=== PATIENT | male | born 1955 | race Caucasian/White ===

== ENCOUNTER → 2020-01-08 14:45 | Outpatient (BNVA) | payer OTHER, SELFPAY | PROVIDERS: Family Provider Family Medicine; PCP Family Medicine; Visit Provider Specialist | DX: G31.84 Mild cognitive impairment of uncertain or unknown etiology (principal); Z87.891 Personal history of nicotine dependence | CPT/HCPCS: 99213 ==

== ENCOUNTER → 2020-02-19 09:49 | Outpatient (BNVA) | payer OTHER, SELFPAY | PROVIDERS: Family Provider Family Medicine; PCP Family Medicine; Visit Provider Specialist | DX: G31.84 Mild cognitive impairment of uncertain or unknown etiology (principal); Z87.891 Personal history of nicotine dependence | CPT/HCPCS: 99213 ==

== ENCOUNTER → 2020-04-15 15:14 | Outpatient (BNVA) | payer OTHER, SELFPAY | PROVIDERS: Family Provider Family Medicine; PCP Family Medicine; Visit Provider Specialist | DX: G31.84 Mild cognitive impairment of uncertain or unknown etiology (principal); F03.90 Unspecified dementia, unspecified severity, without behavioral disturbance, psychotic disturbance, mood disturbance, and anxiety | CPT/HCPCS: 96116; 99213 ==

== ENCOUNTER → 2021-01-22 14:33 | Outpatient (BNVA) | payer OTHER, SELFPAY | PROVIDERS: Family Provider Family Medicine; PCP Family Medicine; Visit Provider Specialist | DX: F03.90 Unspecified dementia, unspecified severity, without behavioral disturbance, psychotic disturbance, mood disturbance, and anxiety (principal); Z87.891 Personal history of nicotine dependence | CPT/HCPCS: 99213 ==

== ENCOUNTER → 2021-08-25 13:19 | Outpatient (BNVA) | payer OTHER, SELFPAY | PROVIDERS: Family Provider Family Medicine; PCP Family Medicine; Visit Provider Specialist | DX: G31.84 Mild cognitive impairment of uncertain or unknown etiology (principal) | CPT/HCPCS: 96116; 99213 ==

== ENCOUNTER 2021-09-01 14:34 | Emergency (ER) | payer OTHER, SELFPAY ==
[2021-09-01 15:20] VITALS: BP 176/112; PULSE 102; RESP 18; TEMP 36.8; O2SAT 94; BMI 30.3
--- NOTE | 2021-09-01 16:02 | ED_ITS ---
HPI - Fall General: Chief Complaint: Fall Stated Complaint: Injury to Left side from fall Time Seen by Provider: 09/01/21 15:29 History of Present Illness: HPI Narrative: Patient is a 66-year-old male comes to the ED with left-sided pain after fall. Patient was in his house and got up in the middle the night to go to the bathroom and fell landing on his left side. He says his left lower flank hit a piece of furniture. Denies any loss of consciousness or head trauma. Patient was able to get up on his own and ambulate right after injury. He is now complaining of having some left sided rib pain and some bruising on his left flank. Any movement causes pain and discomfort. He is able to ambulate but says he has to go a little slower due to the left flank pain. Associated symptoms-after fall: Denies abdominal pain, chest pain, headache(s), hematuria or neck pain Review of Systems Const: Denies: fever(s), chills or fatigue Eyes: Denies: change in vision or eye discomfort ENMT: Denies: throat pain, odynophagia, nasal discharge or nasal congestion Card: Denies: chest pain, palpitations, edema, swelling of feet/ankles, dys pnea on exertion or orthopnea Resp: Reports: pain on inspiration (left rib pain ); Denies: dyspnea, productive cough or non-productive cough GI: Denies: abdominal pain, nausea, vomiting, diarrhea, constipation or hematochezia : Reports: flank pain (contusion of left flank area after fall); Denies: difficulty urinating, dysuria or hematuria Musc: Denies: neck pain, back pain or extremity swelling Skin/Breast: Denies: rash or new lesions Neuro: Denies: headache(s), numbness in extremities or weakness in extremities PFSH ED PFSH: Family History Other CAD (coronary artery disease) Dementia Hypertension Denies family history of Diabetes Cancer Stroke Social History Smoking and tobacco status: never smoked Quit status (tobacco): has quit using tobacco Year quit tobacco: 1986 Alcohol intake: current Alcohol intake frequency: few times a week History of recent travel: No Physical Exam Const: COMMON NORMALS: no acute distress, patient oriented x3 and alert GENERAL APPEARANCE: cooperative and comfortable HENMT: COMMON NORMALS: normocephalic HEAD & SCALP: normocephalic MOUTH: Normal oral and palatal mucosa present THROAT: posterior oropharynx normal and uvula midline Neck/C-Spine: COMMON NORMALS: supple GENERAL: Yes normal visual inspection Resp: COMMON NORMALS: normal respiratory effort, No retractions, No use of accessory muscles and clear to auscultation bilaterally AUSCULTATION: clear to auscultation bilaterally Cardio: COMMON NORMALS: regular rate, regular rhythm, S1 normal heart sound present, S2 normal heart sound present, No gallops present (Cardio), No clicks present (Cardio), No murmurs present (Cardio) and Peripheral pulses 2+ throughout RATE: regular rate RHYTHM: regular rhythm HEART SOUNDS: S1 normal heart sound present and S2 normal heart sound present PERIPHERAL PULSES: Peripheral pulses 2+ throughout GI: COMMON NORMALS: Normal to inspection, nondistended, normoactive bowel sounds present, Soft to palpation, non-tender and no masses PALPATION: Yes Soft to palpation : COMMON NORMALS: Yes no CVA tenderness BLADDER/KIDNEY EXAM: Yes no CVA tenderness Back/Pelvis: COMMON NORMALS: no CVA tenderness OTHER: Left lower flank?patient has some swelling and ecchymosis noted. It is tender to the touch as well. Findings suggestive of a contusion. Neuro: COMMON NORMALS: patient oriented x3 and moves all extremities SENSORIUM/ORIENTATION: Yes alert Skin: GENERAL SKIN EXAM: dry skin Course Vital Signs: Vital signs: Vital Signs Temperature 98.2 F 09/01/21 15:20 Pulse Rate 102 H 09/01/21 15:20 Respiratory Rate 18 09/01/21 15:20 Blood Pressure 176/112 09/01/21 15:20 Pulse Oximetry 94 09/01/21 15:20 MDM - Fall MDM Narrative: Medical decision making narrative: Patient is a 66-year-old male comes to the ED with left flank pain and some left rib pain after fall. Patient said he tripped over something on the floor last night and his left flank hit a piece of furniture. Denies any loss of consciousness and was able to get up on his own and ambulate right afterwards. Vitals are stable. Patient appears in no acute distress. He has visible contusion on left flank. Chest x- ray and KUB showed no acute findings. Patient was diagnosed with a left flank contusion discharged home with a prescription for ibuprofen 800 mg and cyclobenzaprine. He was told to follow-up with his PCP in 7 to 10 days reevaluation. Return to ED precautions given. Patient understood agree with plan. Imaging Data^: CXR: Attestation: I personally reviewed and interpreted this imaging study as follows: Radiologist's impression: [id number] [place], [place] [address]WTki ReportSigned Patient: Chauncey Rios #: [id number]: 5Acct#:[id number]/Sex: 66 / MADM Date: 09/01/21Loc: ERRoom/Bed:Attending Dr: Ordering Provider/Ordering MD: Wood Bruno Date of Service: 09/01/21 Procedure(s): XR ribs LT mn 3V w CXR1V 54892 Accession Number(s): [id number] Report Number: [id number] PROCEDURE INFORMATION: Exam: XR Left Ribs with PA Chest Exam date and time: 09/01/2021 4:00 PM Age: 66 years old Clinical indication: Injury or trauma; Fall; Rib area, left side; Blunt trauma; Injury details: History--pt fell 2 days ago. PT is experiencing pain in the posterior and axillary ribs on the lt side. Also lower back pain. PT has excruciating pain while moving; Patient HX: HX of colon CA; Additional info: Left rib pain after fall TECHNIQUE: Imaging protocol: XR Left ribs with PA chest. Views: 3 views COMPARISON: CT Abdomen wwo IV cont [id number] 06/08/2019 9:35 AM FINDINGS: Lungs: Lungs are clear. Pleural spaces: There is no pleural effusion or pneumothorax. Heart/Mediastinum: Cardiomediastinal contours are unremarkable. Bones/joints: No visible rib fracture. XR/XR ribs LT mn 3V w CXR1V [id number] IMPRESSION: No acute findings. Radiation Dose CTDIVOL = (mGy): DLP = (mGy-cm) Dictated By:Percy Ward MDSigned By:Percy Ward MDSigned Date/Time:09/01/211708DD/ 1600 KUB: Attestation: I personally reviewed and interpreted this imaging study as follows: Radiologist's impression: [address] [address] XRay Report Signed Patient: Chauncey Rios Unit #: [id number] : 1955 Age/Sex: 66 / M ADM Date: 09/01/21 Loc: ER Room/Bed: Attending Dr: Ordering Provider/Ordering MD: Wood Bruno Date of Service: 09/01/21 Procedure(s): XR KUB portable [id number] Accession Number(s): [id number] Report Number: [id number] PROCEDURE INFORMATION: Exam: XR Abdomen Exam date and time: 09/01/2021 4:00 PM Age: 66 years old Clinical indication: Injury or trauma; Fall; Blunt; Luq; Injury details: History--pt fell 2 days ago. PT is experiencing pain in the posterior and axillary ribs on the lt side. Also lower back pain. PT has excruciating pain while moving; Patient HX: HX of colon CA; Additional info: Fall with left flank pain and bruising TECHNIQUE: Imaging protocol: XR of the abdomen. Views: Frontal supine view of the abdomen. 1 View. COMPARISON: [place]dom[place] [id number] 06/08/2019 9:35 AM FINDINGS: Gastrointestinal tract: Normal. No bowel dilation. Bones/joints: Unremarkable. XR/XR KUB portable [id number] IMPRESSION: No acute findings. Radiation Dose CTDIVOL = (mGy): DLP = (mGy-cm) Dictated By: Percy Ward MD Signed By: Percy Ward MD Signed Date/Time: 09/01/211705 DD/ 1600 Discharge Plan Discharge Patient Disposition: Home Clinical Impression: Contusion of flank Qualifiers: Encounter type: initial encounter Qualified Code(s): S30.1XXA - Contusion of abdominal wall, initial encounter Condition: Stable Prescriptions: New ibuprofen 800 mg tablet 800 mg PO Q8H PRN (Reason: pain) Qty: 30 RF: 0 cyclobenzaprine 10 mg tablet 10 mg PO BID PRN (Reason: muscle spasm) Qty: 20 RF: 0 No Action donepezil [Aricept] 10 mg tablet 10 mg PO DAILY Qty: 90 RF: 3 atenolol 25 mg tablet 25 mg PO DAILY Qty: 90 RF: 0 hydrochlorothiazide 12.5 mg capsule 12.5 mg PO DAILY Qty: 90 RF: 0 Discharge Orders: Discharge ED (Routine); Ordered 09/01/21 Ordered By: Wood Bruno Referrals: Joselito Blackwood [Primary Care Provider] - Discharge Diet: Regular Discharge Activity: Increase activity as tolerated Patient Instructions: Contusion in Adults (ED) Activity Restrictions/Additional Instructions: Follow-up with medical provider as directed in 5 to 7 days reevaluation. Take medications as prescribed. Rest, limit lifting and activity for the next couple days. Apply cold pack on sore area to help with symptoms as well. Return to the ER or your medical provider if condition worsens. Please read and understand discharge instructions. Thank you for choosing [facility] for your healthcare needs today. Please realize this is an emergency room and that we are providing you with a medical screening exam and this may not be complete and all inclusive of all the testing and or work up that you may need to determine your ailment or severity of your illness. It is very important that you follow up as instructed or that you return to the Emergency Department should you have concerns or if your condition changes or worsens in any way. Coding Level of Care Code ED Senior Database Administrator for Venkat Painter Exam Comprehensive
[2021-09-01] MEDS: ketorolac 60 mg/2 mL INJ IM (16:37)
== END 2021-09-01 17:41 | disposition home or self-care (01) ==
PROVIDERS: Emergency Provider Physician Assistant; PCP Family Medicine
DX: S30.1XXA Contusion of abdominal wall, initial encounter (principal); W01.190A Fall on same level from slipping, tripping and stumbling with subsequent striking against furniture, initial encounter; Y92.013 Bedroom of single-family (private) house as the place of occurrence of the external cause
CPT/HCPCS: 71101; 74018; 96372; 99283; J1885

== ENCOUNTER → 2022-07-08 15:35 | Outpatient (BNVA) | payer MEDICARE, MEDICAID, SELFPAY | PROVIDERS: PCP Clinical Nurse Specialist Adult Health; Visit Provider Family Medicine | DX: I10 Essential (primary) hypertension (principal); G31.84 Mild cognitive impairment of uncertain or unknown etiology; E55.9 Vitamin D deficiency, unspecified; E53.8 Deficiency of other specified B group vitamins; E78.5 Hyperlipidemia, unspecified | CPT/HCPCS: 80053; 80061; 82306; 82607; 85025 ==

== ENCOUNTER → 2022-10-27 12:23 | Outpatient (BNVA) | payer OTHER, MEDICAID, SELFPAY | PROVIDERS: PCP Clinical Nurse Specialist Adult Health; Visit Provider Clinical Nurse Specialist Adult Health | DX: I10 Essential (primary) hypertension (principal) | CPT/HCPCS: 85025 ==

== ENCOUNTER → 2022-10-29 12:00 | Outpatient (BNVA) | payer OTHER, MEDICAID, SELFPAY | PROVIDERS: PCP Clinical Nurse Specialist Adult Health; Visit Provider Clinical Nurse Specialist Adult Health | DX: I10 Essential (primary) hypertension (principal); E55.9 Vitamin D deficiency, unspecified | CPT/HCPCS: 82306 ==

== ENCOUNTER → 2024-02-25 09:32 | Outpatient (BNVA) | payer MEDICARE, MEDICAID, SELFPAY | PROVIDERS: PCP Clinical Nurse Specialist Adult Health; Visit Provider Surgery | DX: Z85.038 Personal history of other malignant neoplasm of large intestine (principal); Z12.11 Encounter for screening for malignant neoplasm of colon | CPT/HCPCS: 99024; 99204 ==

== ENCOUNTER 2024-03-31 09:42 | Outpatient (CLI) | payer MEDICARE, MEDICAID, SELFPAY ==
--- NOTE | 2024-03-31 09:55 | XR_ITS ---
WS: [id number] XR lumbar spine 2-3V* [id number] REASON FOR EXAM: CHRONIC LUMBAR BACK PAIN FINDINGS: Moderate levoscoliosis. Mild straightening of the normal lordosis. No vertebral body abnormality. Moderate narrowing of the L5-S1 disc space with adjacent endplate sclerosis and vertebral Mild vertebral osteophytosis L3 and L4. 7 mm of anterolisthesis of L4 in relation to L3. Osteophytosis. XR/XR lumbar spine 2-3V* [id number] IMPRESSION: Degenerative spondylosis and listhesis as above. Compared to previous examination 04/10/2019 the levoscoliosis and the listhesis have progressed.
--- NOTE | 2024-03-31 09:55 | XR_ITS ---
WS: [email or web address] XR chest 2V* [id number] REASON FOR EXAM: CHRONIC COUGH FINDINGS: The chest is unchanged compared to 09/01/2021. Moderate tortuosity of the thoracic aorta with normal heart size. Calcified granulomas disease in both hemithoraces. Linear and reticular lung opacities which suggest chronic scarring and atelectasis in the right middl e lobe. No acute pulmonary parenchymal or pleural abnormality is identified. XR/XR chest 2V* [id number] IMPRESSION: Stable chest with probable chronic right middle lobe scarring and atelectasis. No acute chest abnormality.
--- NOTE | 2024-03-31 09:55 | XR_ITS ---
WS: [email or web address] XR thoracic spine 3V* [id number] REASON FOR EXAM: CHRONIC LUMBAR BACK PAIN FINDINGS: Moderate dextroscoliosis of the thoracic spine. No significant kyphosis. No significant vertebral body abnormality. Minimal disc space narrowing with minimal vertebral osteophytosis in the midthoracic spine. XR/XR thoracic spine 3V* [id number] IMPRESSION: Moderate thoracic scoliosis with minimal degenerative spondylosis.
== END 2024-03-31 09:43 | disposition home or self-care (01) ==
LOC: RAD 09:45
PROVIDERS: PCP Clinical Nurse Specialist Adult Health; Visit Provider Family Medicine
DX: M41.84 Other forms of scoliosis, thoracic region (principal); M47.814 Spondylosis without myelopathy or radiculopathy, thoracic region; M41.86 Other forms of scoliosis, lumbar region; M48.061 Spinal stenosis, lumbar region without neurogenic claudication; M48.08 Spinal stenosis, sacral and sacrococcygeal region; M43.16 Spondylolisthesis, lumbar region; M25.78 Osteophyte, vertebrae; Q25.46 Tortuous aortic arch; J98.11 Atelectasis
CPT/HCPCS: 71046; 72072; 72100

== ENCOUNTER → 2024-08-01 10:02 | Outpatient (BNVA) | payer OTHER, SELFPAY | PROVIDERS: PCP Clinical Nurse Specialist Adult Health; Visit Provider Student in an Organized Health Care Education/Training Program | DX: Z12.11 Encounter for screening for malignant neoplasm of colon (principal); Z85.038 Personal history of other malignant neoplasm of large intestine | CPT/HCPCS: 99204; 99214 ==

== ENCOUNTER 2024-09-18 06:17 | Day surgery (SDC) | payer OTHER, SELFPAY ==
[2024-09-18 06:34] VITALS: BP 129/106; PULSE 102; RESP 17; TEMP 36.2; O2SAT 96; BMI 31.8
[2024-09-18] MEDS: sodium chloride 0.9% 1,000 ML 30 ML IV (06:45)
--- NOTE | 2024-09-18 07:03 | W.PM.OPSFHP ---
Same Day Surgery H&P Indication for Procedure/HPI DATE OF PROCEDURE: September 18, 2024 CHIEF COMPLAINT/INDICATIONFOR SURGICAL PROCEDURE: screening colonoscopy PREOP DIAGNOSIS: screening colonoscopy PLANNED PROCEDURE: Operation Date: 09/18/24 07:00 Proposed Procedures p Colonoscopy 94041, Z85.038, Z12.11(Not Applicable) - Jonah Haddad MD Medications/Allergies* Home Medications Medication Instructions Recorded Confirmed Type losartan 100 mg tablet 50 mg PO DAILY 04/03/24 09/18/24 History amitriptyline 10 mg tablet 10 mg PO BEDTIME PRN Sleep 07/03/24 09/18/24 History Allergies/Adverse Reactions Allergy/AdvReac Type Severity Reaction Status Date / Time No Known Allergies Allergy Verified 08/01/24 10:13 Current Medications: Generic Name Dose Route Start Last Admin Trade Name Freq PRN Reason Stop Dose Admin Sodium Chloride 1,000 mls @ 30 mls/hr 09/18/24 06:30 09/18/24 06:45 Sodium Chloride 0.9% IV 30 mls/hr .Q24H GERMAINE Administration Pertinent History/Comorbid Conditions* Medical History (Updated 02/25/24 @ 11:34 by Abundio Duckworth DO) History of colon cancer Insomnia Vitamin D deficiency Vitamin B12 deficiency Hyperlipidemia Hypertension Mild cognitive impairment with memory loss Surgical History (Updated 02/25/24 @ 11:34 by Abundio Duckworth DO) Hx of colonoscopy with polypectomy [facility] in [facility] Home History of bowel resection Family History (Updated 01/08/20 @ 15:39 by Jennie Mills LPN) CAD (coronary artery disease) Dementia Hypertension Denies family history of Diabetes Cancer Stroke Social History Smoking and tobacco/nicotine status: former use of tobacco/nicotine Quit status (tobacco/nicotine): has quit using Year quit tobacco: 1986 Alcohol intake: current Alcohol intake frequency: few times a week Substance/Drug Use: never Pertinent Exam Findings alert, oriented x 3, clear to auscultation bilaterally, regular rate & rhythm and procedure specific exam findings Abdomen soft, nt, nd Recommendations Surgery/Procedure today Coding Level of Care Code Acute Code for Chg Fwd
--- NOTE | 2024-09-18 07:07 | ANES.PREANE2 ---
Pre-Anesthetic Assessment Height/Weight: Height 1.83 m Weight 106.594 kg Temp Pulse Resp BP Pulse Ox O2 Del Method 97.1 F L 102 H 17 129/106 96 Room Air 09/18/24 06:34 09/18/24 06:34 09/18/24 06:34 09/18/24 06:34 09/18/24 06:34 09/18/24 06:34 Preop Diagnosis: screening colonoscopy Operation Date: 09/18/24 07:00 Proposed Procedures p Colonoscopy 56525, Z85.038, Z12.11(Not Applicable) - Jonah Haddad MD Familial anesthetic complications: none Was Beta Daysi taken within 24 hours: N/A Was Clonidine taken within 24 hours: N/A Last intake: Intake Last Liquid Date 09/18/24 Last Liquid Time 05:15 Last Solid Date 09/16/24 Last Solid Time 17:00 Last Intake: 05:15 (1/2 cup of tea. will wait until 15 before anesthesia) Social No alcohol and No tobacco Exam alert and oriented x 3 Airway Submandibular: within normal limits Cervical ROM: within normal limits Mallampati: Class II Dentition: full History/ROS No significant history except as noted Pulmonary None reported CV/HEM Hypertension None reported Hepatic None reported GI None reported Metabolic Hyperlipidemia [facility] None reported Neuropsych None reported Anesthetic Plan ASA status: 2 Anesthesia: Anesthesia Evaluation and MAC Medications/Allergies Home Medications Medication Instructions Recorded Confirmed Last Taken Type ibuprofen 800 mg tablet 800 mg PO Q8H PRN pain #30 tabs 09/01/21 09/18/24 04/02/24 Rx temazepam 15 mg capsule 15 mg PO .qhs PRN sleep #30 caps 10/27/22 09/18/24 09/12/24 Rx atorvastatin 80 mg tablet 80 mg PO DAILY #90 tabs 05/26/23 09/18/24 09/15/24 Rx losartan 100 mg tablet 50 mg PO DAILY 04/03/24 09/18/24 09/15/24 History amitriptyline 10 mg tablet 10 mg PO BEDTIME PRN Sleep 07/03/24 09/18/24 Unknown History bisacodyl 5 mg tablet,delayed 5 mg PO ONCE 1 day #4 tabs 09/07/24 09/18/24 09/17/24 Rx release (Dulcolax (bisacodyl)) magnesium citrate 296 ml PO BID 1 day #592 mL 09/07/24 09/18/24 09/17/24 Rx Allergies Allergy/AdvReac Type Severity Reaction Status Date / Time No Known Allergies Allergy Verified 08/01/24 10:13 Current Medications Generic Name Dose Route Start Last Admin Trade Name Vikramq PRN Reason Stop Dose Admin Sodium Chloride 1,000 mls @ 30 mls/hr 09/18/24 06:30 09/18/24 06:45 Sodium Chloride 0.9% IV 30 mls/hr .Q24H GERMAINE Administration PFSH Anesthesia Medical History History of colon cancer Insomnia Vitamin D deficiency Vitamin B12 deficiency Hyperlipidemia Hypertension Mild cognitive impairment with memory loss Surgical History Hx of colonoscopy with polypectomy [facility] in [facility] Home History of bowel resection Family History Other CAD (coronary artery disease) Dementia Hypertension Denies family history of Diabetes Cancer Stroke Social History Smoking and tobacco/nicotine status: former use of tobacco/nicotine Quit status (tobacco/nicotine): has quit using Year quit tobacco: 1986 Alcohol intake: current Alcohol intake frequency: few times a week Substance/Drug Use: never Data Anesthesia Cardiac Studies: No Data to Display
[2024-09-18 07:47] VITALS: BP 143/92; PULSE 91; RESP 16; TEMP 36.2; O2SAT 90
[2024-09-18 07:56] VITALS: BP 123/85; PULSE 85; RESP 18; TEMP 36.2; O2SAT 93
--- NOTE | 2024-09-18 08:22 | ANE.PACU2 ---
Inpatient post-anesthesia follow up: Airway intact: Yes Vital signs: Temperature 97.1 F Pulse Rate 85 Respiratory Rate 18 Blood Pressure 123/85 Pulse Oximetry 93 Oxygen Delivery Me thod Room Air Oxygen Flow Rate Fraction of Inspir ed Oxygen Hydration adequate: Yes Nausea and vomiting: No Pain level: 1 Mental status: Baseline
== END 2024-09-18 08:16 | disposition home or self-care (01) ==
PROVIDERS: PCP Family Medicine; Visit Provider Student in an Organized Health Care Education/Training Program
PROC: 0DJD8ZZ Inspection of Lower Intestinal Tract, Via Natural or Artificial Opening Endoscopic (ICD-10-PCS; CPT 45378; principal; 2024-09-18 07:00)
DX: Z12.11 Encounter for screening for malignant neoplasm of colon (principal); K57.30 Diverticulosis of large intestine without perforation or abscess without bleeding; Z85.038 Personal history of other malignant neoplasm of large intestine; E78.5 Hyperlipidemia, unspecified; I10 Essential (primary) hypertension; Z87.891 Personal history of nicotine dependence
CPT/HCPCS: 45378; J2704; J7030